=== PATIENT | female | born 1950 | race Caucasian/White ===

== ENCOUNTER 2017-07-20 06:39 | Day surgery (SDC) | payer MEDICARE ==
[~2017-07-20 06:39] MED LIST: Buffered Lidocaine 0.9% SYRIN* 5 ML/SYR SYRINGE INTRADERM ONE; Dexamethasone IV* 4 MG/ML 1 ML (4 MG) IV SLOW PU ONE; Famotidine IV* 10 MG/ML 2 ML (20 mg) IV ONE
[2017-07-20] MEDS ORDERED: Dexamethasone IV* 4 MG/ML 1 ML (4 MG) ONE ×2 (06:54→07:12)
[2017-07-20] MEDS ORDERED: Clindamycin 900 MG IVPREMIX(* 900 MG/50 ML SDV IV ONE (06:54)
[2017-07-20] MEDS ORDERED: Famotidine IV* 10 MG/ML 2 ML (20 mg) ONE (06:54)
[2017-07-20] MEDS ORDERED: Bupivacaine 0.25% SDV* 30 ML ONE (07:12)
[2017-07-20] MEDS ORDERED: Lidocaine 1% INJ* 10 MG/ML 30 ML SDV ONE (07:12)
[2017-07-20] MEDS ORDERED: Levalbuterol 0.63MG/3ML NEB* UNIT OF USE INH ONE ×2 (07:32→07:40)
[2017-07-20] MEDS ORDERED: Atracurium* 10 MG/ML 10 ML VIAL ONE (07:36)
[2017-07-20] MEDS ORDERED: Ondansetron INJ* 2 MG/ML VIAL ONE ×2 (07:37→11:17)
[2017-07-20] MEDS ORDERED: Propofol* 10 MG/ML 20 ML BTL IV PUSH ONE (07:37)
[2017-07-20] MEDS ORDERED: Ketorolac INJ* 30 MG/ML 1 ML VIAL ONE (07:37)
[2017-07-20] MEDS ORDERED: Midazolam* 1 MG/ML 5 ML VIAL (5 MG) ONE (07:37)
[2017-07-20] MEDS ORDERED: Lidocaine 2% PF * 5 ML VIAL ONE (07:37)
[2017-07-20] MEDS ORDERED: fentaNYL* 50 MCG/ML 5 ML VIAL (250 MCG VIAL) ONE (07:38)
[2017-07-20] MEDS ORDERED: Glycopyrrolate IV* 0.2 MG/ML 1 ML VIAL ONE (08:06)
[2017-07-20] MEDS ORDERED: DiMENhydriNATE IV* 50 MG/ML VIAL IV PUSH PRN (10:06)
[2017-07-20] MEDS ORDERED: Scopolamine 1.5 mg* PATCH TRANSDERM PRN (10:06)
[2017-07-20] MEDS ORDERED: Ondansetron INJ* 2 MG/ML VIAL IV PRN (10:06)
[2017-07-20] MEDS ORDERED: Naloxone* 0.4 MG/ML 1 ML VIAL IV PRN (10:06)
[2017-07-20] MEDS ORDERED: fentaNYL* 50 MCG/ML 2 ML VIAL (100 MCG VIAL) IV PRN (10:06)
[2017-07-20] MEDS ORDERED: oxyCODONE/Acetamin 5/325 MG* TAB PO PRN (10:06)
[2017-07-20] MEDS ORDERED: DiMENhydriNATE IV* 50 MG/ML VIAL ONE (11:16)
[2017-07-20 11:57] VITALS: BP 127/62
--- NOTE | 2017-07-21 01:43 | OP ---
DATE OF OPERATION: 07/20/17 - [facility] DATE OF : 52 SURGEON: Sj Hammond DPM SPECIAL NEEDS BUS DRIVER: None. ANESTHESIA: MAC with local. PRE-OP DIAGNOSES: 1. Painful bunion deformity, right foot. 2. Painful dorsal bone spur at the medial cuneiform, right foot. 3. Painful tailor's bunion deformity, right foot. 4. Painful second right hammer toe. 5. Painful third right hammer toe. POST-OP DIAGNOSES: 1. Painful bunion deformity, right foot. 2. Painful dorsal bone spur at the medial cuneiform, right foot. 3. Painful tailor's bunion deformity, right foot. 4. Painful second right hammer toe. 5. Painful third right hammer toe. OPERATIVE PROCEDURE: 1. Bunionectomy with closing base wedge osteotomy and phalangeal osteotomy on the right foot. 2. Excision of dorsal tarsal bone spur from the medial cuneiform on the right foot. 3. Tailor's bunionectomy with fifth metatarsal osteotomy on the right foot. 4. Correction of second right hammer toe. 5. Correction of third right hammer toe. PATHOLOGY: Degenerative bone. ANESTHESIA: General. HEMOSTASIS: Pneumatic ankle tourniquet at 250 mmHg about a well-padded right ankle. ESTIMATED BLOOD LOSS: Less than 20 cc. MATERIALS: Four of the 3.0 mm cannulated [place] screws and two of the smooth 0.06 2-inch K-wires. INDICATIONS: The patient with chronic right forefoot pain and deformity with large bunion hallux valgus, dorsal and lateral contracture of toes 2 and 3 and prominent fifth metatarsal head with tailor's bunion deformity. She also has a painful dorsal bone spur with associated neuritis, became painful to wear shoes. The patient opts for surgery at this time to attempt to decrease the deformities, decrease pain, improve her ability to wear shoes and improve her ability to walk. DESCRIPTION OF PROCEDURE: The patient was brought to the operating room, placed on the operating room table in supine position. The anesthesia department administered general anesthesia. This being done. The right foot was then prepped and draped in the usual fashion. Next, a 1:1 mixture of 1% lidocaine plain and 0.5% Marcaine plain was infiltrated about the right forefoot. Next, the right foot was then exsanguinated with an Esmarch bandage and pneumatic ankle tourniquet was inflated to 250 mmHg above a well-padded right ankle. Attention was directed to the dorsal medial aspect of the right great toe joint where a curvilinear incision was made from the medial cuneiform all the way distal to the great toe. An incision was deepened through the subcutaneous tissues and care being taken to retract neurovascular structures and cauterize the superficial bleeders as needed. At the dorsal aspect of the medial cuneiform, there was a visible palpable subcutaneous dorsal bone spur. Dissection was carried about this area. The medial dorsal cutaneous nerve was noted and gently retracted off away from this area. The capsular and periosteal tissues were reflected off exposure of the bone spur which was resected with a sagittal saw, rongeur, and burred smooth. Surgical site was then flushed with copious amounts of normal sterile saline. Next, an inverted L capsular incision was made in the periosteum and the capsular tissues were reflected to allow for exposure of the great toe joint. There was noted to be hypertrophic bone medially of the great toe on the first metatarsal head. Dissection was carried down to the first intermetatarsal space where a traditional lateral release was performed. A McGlamry elevator was also needed to gently free the plantar lateral adhesions of the sesamoid apparatus. The medial eminence was resected with sagittal saw and then managed to preserve the sagittal groove. Next, the closing base wedge osteotomy was performed and temporary fixation was used to bone clamp and after assessing the position with the mini C- arm. Using standard technique, two of the 3.0 mm cannulated screws were used for fixation near the base of the first metatarsal. Temporary fixations were removed and the osteotomy suspected found to be solid with no detectable motion or gapping and the screws were two fingers tight. There was still some lateral deviation in hallux interphalangeus within the great toe, so dissection was carried with care selwyn taken to retract neurovascular structures and cauterize superficial bleeders as needed. Next, an angular phalangeal osteotomy was performed with the osteotomy reduced. Temporary fixation was achieved with a bone clamp and a smooth wire from the screw set and using standard technique for assessing the position with the C-arm , a 3.0 mm cannulated [place] screw was placed across the osteotomy site. Temporary fixation was removed and the osteotomy was inspected and found to be solid with no detectable motion or gapping. The screw was two fingers tight. Power bur was used to smooth rough edges and surgical site was flushed with copious amounts of normal sterile saline. The redundant medial capsule was resected with a capsulorrhaphy and the capsular and periosteal tissues were reapproximated and secured with 2-0 Vicryl and subcutaneous tissue was reapproximated and secured with 4-0 Vicryl. With the dorsal bone spur, the periosteal tissues were reapproximated and secured with 4-0 Vicryl and subcutaneous tissues were reapproximated and secured with 4-0 Vicryl as well. A 5-0 nylon was used for skin closure. Next, attention was directed to the dorsal aspect of the second digit, where a curvilinear incision was made. The incision was deepened through the subcutaneous tissues with care being taken to retract neurovascular structures and cauterize superficial bleeders as needed. Dissection was carried down to the proximal interphalangeal joint, as well as proximally of the metatarsophalangeal joint. The extensor hallucis released and a transverse tenotomy and capsulotomy were performed at the proximal interphalangeal joint. The extensor tendon lengthening was performed to the metatarsophalangeal joint, a capsulotomy was performed and McGlamry elevator was needed to free plantar lateral adhesions. The proximal phalangeal head was resected as was the adjacent base of the middle phalanx. Power bur was used to reduce rough margins and the surgical site was flushed with copious amounts of normal sterile saline. Next, a smooth 0.06 inch K-wire was driven through base of the middle phalanx to the tip of the digit through the proximal phalanx across the metatarsophalangeal joint holding the digit in the corrected position. Positioning was again assessed with the C-arm. The proximal phalangeal joint was assessed to assure approximate well and flushed with copious amounts of normal sterile saline. The capsular and extensor tendon was reapproximated and secured with 4-0 Vicryl, the metatarsophalangeal joint level as well as the proximal interphalangeal joint level. The subcutaneous tissues were reapproximated and secured with 4-0 Vicryl and the skin was closed with 5- 0 nylon. Attention was directed to the third right digit, where using the same surgical technique and instrumentation and fixation, same procedure was performed. The wires were bent, cut, and capped. Attention was directed to the fifth metatarsophalangeal joint where a curvilinear incision was made. The incision was deepened through the subcutaneous tissues with care being taken to retract neurovascular structures and cauterize superficial bleeders as needed. The periosteal and capsular tissues were incised to allow for exposure of the fifth metatarsal. The lateral aspects of the fifth metatarsal head was hypertrophied and resected with a sagittal saw. A power bur was used to smooth rough edges. This area was flushed with copious amounts of normal sterile saline. Next, a closing base wedge osteotomy was performed with the hinge more proximal lateral and more medial distal wedge bone resected. The osteotomy was reduced and temporary fixation with a bone clamp and the wire from the screw set was used and while attempting to put the screw across the osteotomy, the lateral portion of the metatarsal cracked and fragmented. This required more proximal point of fixation. A smooth wire from the screw set was placed. The position was checked with the C-arm and using standard technique, a 3.0 mm cannulated [place] screw was placed across the osteotomy. The temporary fixations were removed. The osteotomy was found be solid with no significant motion or gapping and screw was two fingers tights. The surgical site was flushed with copious amounts of normal sterile saline and again the fixation and positioning correction was assessed with the C-arm. The periosteal and capsular tissues were reapproximated and secured with 4-0 Vicryl. Subcutaneous tissues were reapproximated with 4-0 Vicryl and then the skin was closed with 5- 0 nylon. A 12 mg dexamethasone phosphate in total was infiltrated about the surgical site and each incision was dressed with Xeroform gauze, Hernan, and a leg Coban wrap. The pneumatic ankle tourniquet was deflated and after a few moments, hyperemic response was noted by digits 1, 4 and 5 and after a few more moments, a cap refill returned to toes 2 and 3. Having appeared to have tolerated the procedures and anesthesia well, the patient was extubated, the patient was transported via cart from the operating room to Recovery in satisfactory condition with cap refill less than 5 seconds to all digits of the right foot. [id number]/[facility] #: [id number] [facility]
--- NOTE | 2017-07-21 15:25 | RAD ---
INDICATION: Right foot, no other history is provided COMPARISONS: None relevant TECHNIQUE: Fluoroscopy was provided for a surgical procedure. Total fluoroscopy time is: 14 seconds FINDINGS: Spot images demonstrate osteotomy of the first metatarsal and proximal phalanx with percutaneous fixation of the second and third distal rays. IMPRESSION: FLUOROSCOPY WAS PROVIDED FOR A SURGICAL PROCEDURE CPT II Codes: 6045F
== END 2017-07-20 12:30 | disposition home or self-care (01) ==
LOC: OREAST 06:39
PROVIDERS: ATTEND Podiatrist Foot Surgery
DX: M21.611 Bunion of right foot (principal); M21.621 Bunionette of right foot; M20.41 Other hammer toe(s) (acquired), right foot; I10 Essential (primary) hypertension; Z87.891 Personal history of nicotine dependence; J45.909 Unspecified asthma, uncomplicated; M19.90 Unspecified osteoarthritis, unspecified site; K21.9 Gastro-esophageal reflux disease without esophagitis
CPT/HCPCS: 76000; C1713; C1776; J1100; J1240; J1885; J2250; J2405; J2704; J3010; J7614

== ENCOUNTER 2018-05-13 11:32 | Emergency (ER) | payer MEDICARE ==
[2018-05-13 12:27] VITALS: BP 126/60
--- NOTE | 2018-05-13 12:34 | UC ---
Throat Pain/Nasal Zachary HPI - HPI Summary HPI Summary: 67-year-old woman coming in today with chief complaint of runny nose sinus congestion and sore throat. Symptoms started about a week ago. Sore throat was quite bad overnight. SHe does feel like she has postnasal drip. Also having some ear pressure on the left. No cough or chest congestion. Does not feel short of breath. - History of Current Complaint Chief Complaint: UCGeneralIllness Stated Complaint: EAR PAIN,SORE THROAT Time Seen by Provider: 05/13/18 12:06 Pain Intensity: 2 - Allergies/Home Medications Allergies/Adverse Reactions: Allergies Allergy/AdvReac Type Severity Reaction Status Date / Time amoxicillin Allergy Severe Hives Verified 05/13/18 11:56 codeine AdvReac Severe Nausea And Verified 05/13/18 11:56 Vomiting erythromycin base AdvReac Severe Diarrhea Verified 05/13/18 11:56 Sulfa (Sulfonamide AdvReac Intermediate Nausea And Verified 05/13/18 11:56 Antibiotics) Vomiting Home Medications: Home Medications Magnesium Oxide [Magnesium] 1 dose PO DAILY 05/13/18 [History Confirmed 05/13/18 ] PMH/Surg Hx/FS Hx/Imm Hx Previously Healthy: Yes Endocrine History: Dyslipidemia Cardiovascular History: Hypertension GI/ History: Gastroesophageal Reflux - Surgical History Surgical History: Yes Surgery Procedure, Year, and Place: tonsillectomy. total knee replacement bilat 2012. tubal and appendectomy. abdominal laparoscopy. left hand ganglion wrist removed. right foot bunion/hammertoe - Family History Known Family History: Positive: Other - NONCONTRIBUTORY - Social History Alcohol Use: Rare Substance Use Type: None Smoking Status (MU): Former Smoker Amount Used/How Often: smoked off and on 7-10 years , 1/2 ppd When Did the Patient Quit Smoking/Using Tobacco: 17 years ago Review of Systems All Other Systems Reviewed And Are Negative: Yes Constitutional: Positive: Negative Skin: Positive: Negative Eyes: Positive: Negative ENT: Positive: Sore Throat, Ear Ache, Nasal Discharge, Sinus Congestion, Sinus Pain/Tenderness Respiratory: Positive: Negative Cardiovascular: Positive: Negative Gastrointestinal: Positive: Negative Motor: Positive: Negative Neurovascular: Positive: Negative Musculoskeletal: Positive: Negative Neurological: Positive: Negative Psychological: Positive: Negative Is Patient Immunocompromised?: No Physical Exam Triage Information Reviewed: Yes Appearance: No Pain Distress, Well-Nourished, Ill-Appearing - MILD Vital Signs: Initial Vital Signs Temp 97.4 F 05/13/18 11:48 Pulse 74 05/13/18 11:48 Resp 18 05/13/18 11:48 Pulse Ox 96 05/13/18 11:48 Vital Signs Reviewed: Yes Eye Exam: Normal Eyes: Positive: Conjunctiva Clear ENT: Positive: Pharyngeal erythema, Nasal congestion, Nasal drainage, TM dull Neck exam: Normal Neck: Positive: Supple, Nontender Respiratory: Positive: Lungs clear, Normal breath sounds, No respiratory distress Cardiovascular: Positive: RRR Musculoskeletal Exam: Normal Musculoskeletal: Positive: Strength Intact, ROM Intact Neurological Exam: Normal Neurological: Positive: Alert, Muscle Tone Normal Psychological Exam: Normal Psychological: Positive: Age Appropriate Behavior Skin Exam: Normal Throat Pain/Nasal Course/Dx - Course Course Of Treatment: DISCUSSED VIRAL VERSES BACTERIAL INFECTION AND THE ROLE OF ANTIBIOTICS. THE PATIENT WISHES TO BE ON ANTIBIOTIC AT THIS TIME. - Differential Dx/Diagnosis Provider Diagnosis: Sinusitis, Pharyngitis Discharge - Sign-Out/Discharge Documenting (check all that apply): Patient Departure All imaging exams completed and their final reports reviewed: No Studies - Discharge Plan Condition: Stable Disposition: HOME Prescriptions: DOXYcycline CAP(*) [DOXYcycline 100MG CAP(*)] 100 mg PO BID #20 cap Patient Education Materials: Pharyngitis (ED), Sinusitis (ED) Referrals: Aracely Lopez NP [Primary Care Provider] - Additional Instructions: FOLLOW UP WITH YOUR DOCTOR IF NOT COMPLETELY IMPROVED. GET RECHECKED FOR ANY WORSENING OF YOUR CONDITION OR QUESTIONS OR CONCERNS. - Billing Disposition and Condition Condition: STABLE Disposition: Home
== END 2018-05-13 12:45 | disposition home or self-care (01) ==
LOC: UCEAST 11:32
DX: J02.9 Acute pharyngitis, unspecified (principal); J32.9 Chronic sinusitis, unspecified; I10 Essential (primary) hypertension; Z88.1 Allergy status to other antibiotic agents; Z88.0 Allergy status to penicillin; Z88.5 Allergy status to narcotic agent; Z88.2 Allergy status to sulfonamides; Z87.891 Personal history of nicotine dependence
CPT/HCPCS: 87651; 99212; G0463